=== PATIENT | male | born 1995 | race Caucasian/White ===

== ENCOUNTER 2025-07-30 15:26 | Day surgery (SDC) | payer OTHER ==
[~2025-07-30] VITALS: Ht 180.3 cm; Wt 100.4 kg
[2025-07-30 16:46] LABS: BASO # 0.1 10^3/uL (0.0-0.2); BASO % 0.4 % (0.0-1.0); EOS # 0.2 10^3/uL (0.0-0.5); EOS % 1.9 % (0.0-3.0); LYMPH # 1.8 10^3/uL (1.5-5.0); LYMPH % 14.7 % (24.0-44.0); MONO # 1.2 10^3/uL (0.0-0.8); MONO % 9.6 % (2.0-8.0); NEUTROPHILS # 9.0 10^3/uL (1.5-8.5); NEUTROPHILS % 73.1 % (36.0-66.0); PLATELET COUNT, AUTOMATED 250 10^3/uL (150-450)
[2025-07-30 16:57] LABS: KETONE, URINE AUTO RFX NEGATIVE (NEGATIVE); LEUKOCYTE ESTERASE UR AUTO RFX NEGATIVE (NEGATIVE); NITRITE, URINE AUTO RFX NEGATIVE (NEGATIVE); RBC, URINE AUTO RFX 1 /HPF (0-3); SQUAM EPITHELIAL CELL UR AURFX 0 /HPF (0-6); WBC, URINE AUTO RFX 1 /HPF (0-3)
[2025-07-30 17:12] LABS: ALT/SGPT 23.0 U/L (7.0-40); AST/SGOT 21.0 U/L (<34); CALCIUM LEVEL 9.4 MG/DL (8.5-10.1); CARBON DIOXIDE LEVEL 31.0 MMOL/L (20-31); CHLORIDE LEVEL 104.0 MMOL/L (98-107); CREATININE FOR GFR 1.2 MG/DL (0.70-1.30); GLOMERULAR FILTRATION RATE 84.5 (>60); POTASSIUM SERUM 4.3 MMOL/L (3.5-5.1); SODIUM LEVEL 144.0 MMOL/L (136-145)
[2025-07-30 17:15] LABS: INR 0.96
[2025-07-30] MEDS ORDERED: ISOVUE-370 76% 100 ML VIAL As Ordered ONE (19:51)
[2025-07-30] MEDS: PIPERACILLIN/TAZOBACTAM SOD 3.375 GM in DEXTROSE 5% (D5W) ADV/MINI-BAG 50 ML IV ONE (21:55)
[2025-07-30] MEDS: NS (Normal Saline) 0.9% 1,000 ML IV ONE (21:55)
[2025-07-30] MEDS ORDERED: KETOROLAC 30 MG/ML 1 ML VIAL IV PRN (22:05)
[2025-07-30] MEDS ORDERED: ONDANSETRON 4MG 2ML VIAL IV PRN (22:05)
[2025-07-30] MEDS ORDERED: MIDAZOLAM INJ 2 MG/2 ML VIAL As Ordered ONE (22:44)
[2025-07-30] MEDS ORDERED: ROCURONIUM BROMIDE 50MG/5ML VIAL As Ordered ONE (22:45)
[2025-07-30] MEDS ORDERED: dexmedeTOMIDine (4 MCG/ML) 200 MCG/50 ML BTL As Ordered ONE (22:45)
[2025-07-30] MEDS ORDERED: ONDANSETRON 4MG 2ML VIAL As Ordered ONE (22:45)
[2025-07-30] MEDS ORDERED: dexAMETHasone 4 MG/ML 1 ML VIAL As Ordered ONE (22:45)
[2025-07-30] MEDS ORDERED: LIDOCAINE 2% 100 MG/5 ML SDV (FOR ANES.) As Ordered ONE (22:45)
[2025-07-31] VITALS (7 sets, daily range): BP systolic 121–152; BP diastolic 56–68; TEMP 96.9–97.8; O2SAT 94–97
[2025-07-31] MEDS ORDERED: ACETAMINOPHEN 1000MG/100ML IV BAG As Ordered ONE (00:10)
[2025-07-31] MEDS ORDERED: SUGAMMADEX SODIUM 500 MG/5 ML VIAL As Ordered ONE (00:18)
[2025-07-31] MEDS ORDERED: KETOROLAC 30 MG/ML 1 ML VIAL As Ordered ONE (00:18)
[2025-07-31] MEDS ORDERED: HYDR-3715 PO (01:16)
[2025-07-31] MEDS ORDERED: AUGM500T34 PO (01:16)
[2025-07-31] MEDS: NS (Normal Saline) 0.9% 1,000 ML IV SCH (01:40)
[2025-07-31] MEDS: PIPERACILLIN/TAZOBACTAM SOD 3.375 GM in DEXTROSE 5% (D5W) ADV/MINI-BAG 50 ML IV SCH (04:37)
[2025-07-31] MEDS ORDERED: SENNOSIDES/DOCUSATE SODIUM 8.6 MG/50MG TAB PO SCH (09:00)
== END 2025-07-31 08:04 | disposition home or self-care (01) ==
LOC: M ED 15:26 → M SDC 22:02 → M MS4PR 07-31 01:24 → M SDC 07-31 08:04
PROVIDERS: ATTEND Surgery
DX: K35.80 Unspecified acute appendicitis (principal)
CPT/HCPCS: 44970; 74177; 80048; 80076; 81001; 82150; 83605; 83690; 85025; 85610; 85730; 88304; 99284; J0131; J0665; J1100; J1885; J2250; J2405; J2543; J3010; Q9967